=== PATIENT | female | born 1950 | race Caucasian/White ===

== ENCOUNTER → 2016-10-11 | Outpatient (CLI) | payer BC ==
[~2016-10-11] MED LIST: HCTZ12.5TAB PO; NORCO 325 MG-51 TAB PO; VITAMIN D31000 IU PO; ZIAC 5/6.25MG T1 TAB PO
== END ==
LOC: MC.RAD 10-06 14:00
DX: Z85.3 Personal history of malignant neoplasm of breast (principal); I10 Essential (primary) hypertension

== ENCOUNTER → 2018-04-25 | Outpatient (CLI) | payer MEDICARE, OTHER | LOC: MC.RAD 14:34 | DX: Z12.31 Encounter for screening mammogram for malignant neoplasm of breast (principal); Z98.890 Other specified postprocedural states ==

== ENCOUNTER → 2019-04-26 | Outpatient (CLI) | payer MEDICARE, OTHER | LOC: MC.RAD 14:17 | DX: Z12.31 Encounter for screening mammogram for malignant neoplasm of breast (principal); Z98.890 Other specified postprocedural states; Z98.82 Breast implant status ==

== ENCOUNTER → 2020-04-28 | Outpatient (CLI) | payer MEDICARE, OTHER | LOC: MC.RAD 14:44 | DX: Z12.31 Encounter for screening mammogram for malignant neoplasm of breast (principal) ==